=== PATIENT | female | born 1985 | race Caucasian/White ===

== ENCOUNTER 2019-10-24 06:23 | Emergency (ER) | payer SELFPAY ==
[~2019-10-24] VITALS: Ht 170.2 cm; Wt 83.9 kg
--- NOTE | 2019-10-24 06:52 | PHYS DOC ---
Past History Past Medical History: No Pertinent History Past Surgical History: Hysterectomy Smoking: Cigarettes Alcohol Use: None Drug Use: None Adult General Chief Complaint Chief Complaint: SHOULDER INJURY HPI HPI Patient is a 33-year-old female presents with left shoulder pain. She was chopping wood and throwing it into the back of her truck yesterday when she felt a pop on the backside of her shoulder. Increased pain with movement. She is right hand dominant. No numbness or tingling. Pain is severe, and not relieved with ibuprofen or acetaminophen. No radiation of the discomfort. Pain is sharp in nature. No previous shoulder injury or surgery. Holding still makes it a little bit better.[] Review of Systems Review of Systems Constitutional: Denies fever or chills [] Eyes: Denies change in visual acuity, redness, or eye pain [] HENT: Denies nasal congestion or sore throat [] Respiratory: Denies cough or shortness of breath [] Cardiovascular: O chest pain or palpitations[] GI: Denies abdominal pain, nausea, vomiting, bloody stools or diarrhea [] : Denies dysuria or hematuria [] Musculoskeletal: Denies back pain, see history of present illness[] Integument: Denies rash or skin lesions [] Neurologic: Denies headache, focal weakness or sensory changes [] Endocrine: Denies polyuria or polydipsia [] All other systems were reviewed and found to be within normal limits, except as documented in this note. Current Medications Current Medications Current Medications Medications (Trade) Dose Ordered Sig/[facility] Start Time Stop Time Status Last Admin Dose Admin Acetaminophen/ Hydrocodone Bitart (Lortab 5/325) 1 tab 1X ONCE 10/24/19 07:00 10/24/19 07:01 Allergies Allergies Allergies Coded Allergies Type Severity Reaction Last Updated Verified amoxicillin Allergy Mild Rash 10/24/19 Yes ketorolac Allergy Mild rash 10/24/19 Yes Physical Exam Physical Exam Constitutional: Well developed, well nourished, moderate discomfort, non-toxic appearance. [] HENT: Normocephalic, atraumatic, bilateral external ears normal, oropharynx moist, no oral exudates, nose normal. [] Eyes: PERRLA, EOMI, conjunctiva normal, no discharge. [] Neck: Normal range of motion, no tenderness, supple, no stridor. [] Cardiovascular:Heart rate is tachycardic with a regular rhythm, no murmur [] Lungs & Thorax: Bilateral breath sounds clear to auscultation [] Abdomen: Not examined. [] Skin: Warm, dry, no erythema, no rash. [] Back: No tenderness, no CVA tenderness. [] Extremities: Left shoulder: Tenderness along the left trapezius and supraspinatus muscle. Decreased abduction and flexion of the shoulder secondary to pain. There is no step-off or crepitus at the shoulder joint. No elbow tenderness. No clavicular tenderness. Full active range of motion at the elbow and wrist. She is distally neurovascularly intact. The other 3 extremities show: No tenderness, no cyanosis, no clubbing, ROM intact, no edema. [] Neurologic: Alert and oriented X 3, normal motor function, normal sensory function, no focal deficits noted. [] Psychologic: Affect normal, judgement normal, mood normal. [] Current Patient Data Vital Signs Vital Signs Date Time Temp Pulse Resp B/P (MAP) Pulse Ox O2 Delivery O2 Flow Rate FiO2 10/24/19 06:39 97.9 120 22 96 Room Air EKG EKG [] Radiology/Procedures Radiology/Procedures Three-view radiographs of the left shoulder show no evidence of a fracture or dislocation. No soft tissue free air[] Course & Med Decision Making Course & Med Decision Making Pertinent Labs and Imaging studies reviewed. (See chart for details) Emergency department course: Patient arrived, was placed in bed, and tolerated exam well. She was given pain medicine and was transported to and from radiology with any complications. After the return of the imaging findings, these were discussed with the patient who voiced understanding. A sling was applied. She was distally neurovascularly intact after sling application. She was discharged in improved condition with all questions answered. Medical decision making: There is no evidence of a fracture or dislocation. No evidence of neurologic or vascular compromise. No evidence of a pneumothorax. No pneumonia in the visualized portion of the lung.[] Dragon Disclaimer Dragon Disclaimer This electronic medical record was generated, in whole or in part, using a voice recognition dictation system. Departure Departure: Impression: Primary Impression: Left shoulder pain Disposition: HOME, SELF-CARE Condition: IMPROVED Referrals: PCP,LAMBERTO (PCP) Patient Instructions: Shoulder Sprain, Sling Use After Injury or Surgery Additional Instructions: Follow-up with your regular doctor in 2 days. If you do not have a regular doctor a list of local clinics will be provided. While there is no evidence of a fracture or dislocation today, you may have injured the rotator cuff. This will need an MRI to determine. There is no MRI capability at [facility]. Apply warm compresses for 15 minutes at a time, at least 4 times a day. Take the pain medication as prescribed. Return to the emergency department if worsening pain, weakness, or any other concerns. Scripts Hydrocodone Bit/Acetaminophen (NORCO 5-325 TABLET) 1 Each Tablet 1 TAB PO Q4-6HRS for severe pain, #20 TAB Prov: BRET CARROLL DO 10/24/19 Meloxicam (MELOXICAM) 7.5 Mg Tablet 7.5 MG PO DAILY for PAIN, #20 TAB Prov: BRET CARROLL DO 10/24/19 Problem Qualifiers Primary Impression: Left shoulder pain Chronicity: acute Qualified Codes: M25.512 - Pain in left shoulder BRET CARROLL DO Oct 24, 2019 06:52
[2019-10-24] MEDS ORDERED: HYDROcodone/APAP 5/325MG 1 TAB TABLET PO ONE (07:00)
[2019-10-24] MEDS ORDERED: HYDR-3165 PO ×2 (07:23→07:29)
[2019-10-24] MEDS ORDERED: MELO7.5T29 PO (07:23)
[2019-10-24 07:40] VITALS: BP 164/100
--- NOTE | 2019-10-24 07:56 | RAD ---
Left shoulder 3 views. HISTORY: Left shoulder pain, pain after throwing wood 3 views were taken of the left shoulder. There is not evidence of a fracture or dislocation or osseous abnormality. IMPRESSION: 1. Negative left shoulder. Electronically signed by: Boo Blas MD (10/24/2019 7:53 AM) [id number]
== END 2019-10-24 07:40 | disposition home or self-care (01) ==
LOC: ER 06:23
DX: M25.512 Pain in left shoulder (principal); F17.210 Nicotine dependence, cigarettes, uncomplicated; Z88.1 Allergy status to other antibiotic agents; Z88.8 Allergy status to other drugs, medicaments and biological substances; X50.9XXA Other and unspecified overexertion or strenuous movements or postures, initial encounter; Y93.89 Activity, other specified; Y92.89 Other specified places as the place of occurrence of the external cause; Y99.8 Other external cause status
CPT/HCPCS: 73030; 99284